=== PATIENT | female | born 1945 | race Caucasian/White ===

== ENCOUNTER 2023-02-20 15:26 | Inpatient (IN) ==
[2023-02-20 16:29] LABS: Venous Bicarbonate HCO3 22.4 mmol/L (24-28)
[2023-02-20] MEDS ORDERED: fentaNYL 100 mcg/2 ml 50 MCG/ML VIAL IV SLOW PU ONE (16:33)
[2023-02-20 16:37] LABS: ABS Lymphocytes 0.6 10^3/uL (1.0-4.8); ABS Monocytes 0.8 10^3/uL (0.0-0.9); ABS Neutrophils 14.4 10^3/uL (1.5-7.6); Hematocrit 38.4 % (35-45); Hemoglobin 13.2 g/dL (11.5-14.3); Mean Corpuscular Hemoglobin 28.4 pg (27-33); Mean Corpuscular Hgb Conc 34.3 g/dL (31-36); Mean Corpuscular Volume 82.8 fL (80-97); Mean Platelet Volume 7.2 fL (7.5-11.2); Platelet Count 315 10^3/uL (150-450); Red Blood Count 4.63 10^6/uL (3.63-4.92); Red Cell Distribution Width 14.1 % (12-17); White Blood Count 15.8 10^3/uL (3.8-11.8)
[2023-02-20 16:44] LABS: Urine Appearance Cloudy; Urine Bilirubin Negative (Negative); Urine Blood 1+ (Negative); Urine Color Yellow; Urine Glucose 3+(>=500 mg/dL) (Negative); Urine Ketones 1+ (Negative); Urine Nitrite Negative (Negative); Urine Protein Negative (Negative); Urine Specific Gravity 1.029 (1.002-1.030); Urine Urobilinogen Negative (Negative)
[2023-02-20 16:47] LABS: Urine Bacteria 1+ (Absent); Urine Red Blood Cell Trace(0-2/hpf) (Absent); Urine Squamous Epithelial Cell Present (Absent); Urine White Blood Cell Trace(0-5/hpf) (Absent)
[2023-02-20 16:49] LABS: Albumin/Globulin Ratio 1.1 (1-3); C Reactive Protein 22.26 mg/L (<8.01); Calcium 9.4 mg/dL (8.6-10.3); Creatinine, Serum 1.05 mg/dL (0.51-0.95); Globulin 3.8 g/dL (2-4); Potassium 4.4 mmol/L (3.5-5.0); Total Bilirubin 0.4 mg/dL (0.2-1.0); Total Protein 7.8 g/dL (6.4-8.9); eGFR CKD-EPI 55.1 (>60)
[2023-02-20] MEDS ORDERED: Dextrose 50% Syringe 50 ml 25 GM/50 ML SYRINGE IV PUSH PRN (17:20)
[2023-02-20] MEDS: Lactated Ringers 1000 ml BAG 1,000 ML IV SCH (17:53)
[2023-02-20] MEDS ORDERED: Morphine 2 MG/ML SYRINGE IV PRN (18:02)
[2023-02-20 18:45] LABS: Glucose Confirmatory 471 mg/dL (70-100)
[2023-02-20] MEDS: Ondansetron 4 mg VIAL 2 MG/ML 2 ml VIAL IV PRN (20:27)
[2023-02-20] MEDS: Calcium (OSCAL) 500 mg TAB PO SCH (20:27)
[2023-02-20] MEDS: Insulin ISOPH/REG 70/30 SUBCUT SCH (22:29)
[2023-02-21] MEDS: Lactated Ringers 1000 ml BAG 1,000 ML IV SCH ×2 (00:48→07:54)
[2023-02-21 06:25] LABS: ABS Eosinophils 0.1 10^3/uL (0.0-0.5); ABS Lymphocytes 1.9 10^3/uL (1.0-4.8); ABS Monocytes 0.7 10^3/uL (0.0-0.9); ABS Neutrophils 3.3 10^3/uL (1.5-7.6); Eosinophil % 1.7 %; Hematocrit 32.7 % (35-45); Hemoglobin 11.4 g/dL (11.5-14.3); Lymphocyte % 31.3 %; Mean Corpuscular Hemoglobin 28.6 pg (27-33); Mean Corpuscular Hgb Conc 34.8 g/dL (31-36); Mean Corpuscular Volume 82.1 fL (80-97); Mean Platelet Volume 7.2 fL (7.5-11.2); Nucleated Red Blood Cells % 0.1 /100 WBC (0.0-0.4); Platelet Count 259 10^3/uL (150-450); Red Blood Count 3.98 10^6/uL (3.63-4.92); Red Cell Distribution Width 14.3 % (12-17)
[2023-02-21 06:41] LABS: Calcium 9.2 mg/dL (8.6-10.3); Creatinine, Serum 1.09 mg/dL (0.51-0.95); eGFR CKD-EPI 52.7 (>60)
[2023-02-21] MEDS: Venlafaxine XR 75 mg PO SCH (08:20)
[2023-02-21] MEDS: Insulin ISOPH/REG 70/30 SUBCUT SCH (08:20)
[2023-02-21] MEDS: Calcium (OSCAL) 500 mg TAB PO SCH ×2 (08:20→21:35)
[2023-02-21] MEDS ORDERED: Insulin ISOPH/REG 70/30 SUBCUT SCH (21:00)
[2023-02-22 06:36] LABS: ABS Eosinophils 0.2 10^3/uL (0.0-0.5); ABS Lymphocytes 1.9 10^3/uL (1.0-4.8); ABS Monocytes 0.6 10^3/uL (0.0-0.9); ABS Neutrophils 3.9 10^3/uL (1.5-7.6); Eosinophil % 3.5 %; Hematocrit 31.4 % (35-45); Hemoglobin 10.8 g/dL (11.5-14.3); Lymphocyte % 28.6 %; Mean Corpuscular Hemoglobin 28.5 pg (27-33); Mean Corpuscular Hgb Conc 34.4 g/dL (31-36); Mean Corpuscular Volume 82.9 fL (80-97); Mean Platelet Volume 6.7 fL (7.5-11.2); Platelet Count 232 10^3/uL (150-450); Red Blood Count 3.79 10^6/uL (3.63-4.92); White Blood Count 6.7 10^3/uL (3.8-11.8)
[2023-02-22 06:55] LABS: Calcium 9.4 mg/dL (8.6-10.3); Creatinine, Serum 1.04 mg/dL (0.51-0.95); Magnesium 1.8 mg/dL (1.9-2.7); Potassium 4.6 mmol/L (3.5-5.0); eGFR CKD-EPI 55.7 (>60)
[2023-02-22] MEDS ORDERED: Magnesium Sulfate IV 1GM/100ML 1 GM/100 ML BAG IV ONE (09:00)
[2023-02-22] MEDS: Venlafaxine XR 75 mg PO SCH (09:06)
[2023-02-22] MEDS: Calcium (OSCAL) 500 mg TAB PO SCH ×2 (09:06→22:11)
[2023-02-22 12:54] LABS: Glucose Confirmatory 447 mg/dL (70-100)
[2023-02-22] MEDS ORDERED: Dextrose 50% Syringe 50 ml 25 GM/50 ML SYRINGE IV PUSH PRN (13:01)
[2023-02-22] MEDS: Insulin ISOPH/REG 70/30 SUBCUT SCH (16:48)
[2023-02-23 06:11] LABS: ABS Eosinophils 0.3 10^3/uL (0.0-0.5); ABS Lymphocytes 1.5 10^3/uL (1.0-4.8); ABS Monocytes 0.5 10^3/uL (0.0-0.9); ABS Neutrophils 3.6 10^3/uL (1.5-7.6); Eosinophil % 4.4 %; Hematocrit 30.2 % (35-45); Hemoglobin 10.5 g/dL (11.5-14.3); Lymphocyte % 25.4 %; Mean Corpuscular Hemoglobin 28.8 pg (27-33); Mean Corpuscular Hgb Conc 34.8 g/dL (31-36); Mean Corpuscular Volume 82.8 fL (80-97); Mean Platelet Volume 7.1 fL (7.5-11.2); Nucleated Red Blood Cells % 0.1 /100 WBC (0.0-0.4); Platelet Count 222 10^3/uL (150-450); Red Blood Count 3.64 10^6/uL (3.63-4.92); Red Cell Distribution Width 13.9 % (12-17); White Blood Count 5.9 10^3/uL (3.8-11.8)
[2023-02-23 06:39] LABS: Calcium 9.4 mg/dL (8.6-10.3); Creatinine, Serum 1.04 mg/dL (0.51-0.95); Magnesium 1.9 mg/dL (1.9-2.7); Potassium 3.8 mmol/L (3.5-5.0); eGFR CKD-EPI 55.7 (>60)
[2023-02-23] MEDS: Insulin ISOPH/REG 70/30 SUBCUT SCH ×2 (07:55→17:44)
[2023-02-23] MEDS: Calcium (OSCAL) 500 mg TAB PO SCH ×2 (07:58→21:19)
[2023-02-23] MEDS: Venlafaxine XR 75 mg PO SCH (07:58)
[2023-02-23] MEDS ORDERED: Sulfur Hexaflouride MICROSPHR 25 MG VIAL ONE (08:29)
[2023-02-23] MEDS: Ondansetron 4 mg VIAL 2 MG/ML 2 ml VIAL IV PRN (20:45)
[2023-02-23] MEDS: Senna TAB 8.6 mg TAB PO PRN (21:20)
[2023-02-23] MEDS: Polyethylene Glycol 3350 17 GM PACKET PO PRN (21:20)
[2023-02-24] MEDS: Venlafaxine XR 75 mg PO SCH (09:20)
[2023-02-24] MEDS: Insulin ISOPH/REG 70/30 SUBCUT SCH (09:20)
[2023-02-24] MEDS: Polyethylene Glycol 3350 17 GM PACKET PO PRN (09:20)
[2023-02-24] MEDS: Senna TAB 8.6 mg TAB PO PRN (09:20)
[2023-02-24 10:04] VITALS: BP 138/78
[2023-02-24] MEDS: Calcium (OSCAL) 500 mg TAB PO SCH (11:49)
[2023-02-24 12:06] LABS: Hepatitis B Surface Antigen Nonreactive (Nonreactive)
[2023-02-24 12:16] LABS: HIV 4th Generation Nonreactive (Nonreactive)
[2023-02-24 12:23] LABS: Hepatitis B Surface Ab Not Immune (Immune); Hepatitis C Antibody Negative (Negative)
== END 2023-02-24 13:10 | DRG 563 ==
LOC: ED 15:26 → EDHOLD 17:18 → MED 19:35
PROVIDERS: ADMIT Hospitalist; ATTEND Hospitalist